=== PATIENT | female | born 1955 | race Caucasian/White ===

== ENCOUNTER 2020-02-25 10:23 | Emergency (ER) | payer MEDICARE, BC ==
[2020-02-25] MEDS ORDERED: Aspirin 81 MG Tab.Chew PO ONE (10:36)
--- NOTE | 2020-02-25 10:41 | EDM.PDOC ---
ED HPI GENERAL MEDICAL PROBLEM - General Chief Complaint: Cardiovascular Problem Stated Complaint: CHEST PAINS Time Seen by Provider: 02/25/20 10:25 Source of Information: Reports: Patient History Limitations: Reports: No Limitations - History of Present Illness INITIAL COMMENTS - FREE TEXT/NARRATIVE: Patient presents the ER this morning with chest pain that started Sunday evening midsternal with no radiation describes as a discomfort across the mid chest but a 7 out of 10 it lasted for about 20 minutes or so and went away after she vomited. States she felt little weak all day the next day. This morning approximate about 4:30 in the morning she has had the same discomfort in the middle of her chest like a band/pressure going all the way around her she denies any radiation but states she felt very nauseated. She went on into work and work made her come here. She denies any chest pain just discomfort states she still has some nausea but denies any shortness of breath or vomiting lightheadedness or dizziness or any other complaints at this time. She states she is had a cardiac stress test 2 years ago was normal but she does have a strong family history with father brothers having MIs and coronary artery disease Duration: Day(s): Location: Reports: Chest Quality: Reports: Pressure Severity: Moderate Improves with: Reports: None Worsens with: Reports: None Associated Symptoms: Reports: Nausea/Vomiting - Related Data Allergies Allergy/AdvReac Type Severity Reaction Status Date / Time paroxetine [From Paxil] Allergy Drowsiness Verified 02/25/20 11:44 Sulfa (Sulfonamide Allergy Swollen Verified 02/25/20 11:44 Antibiotics) Tongue ED ROS GENERAL - Review of Systems Review Of Systems: See Below Constitutional: Reports: No Symptoms HEENT: Reports: No Symptoms Respiratory: Reports: No Symptoms Cardiovascular: Reports: Chest Pain. Denies: Blood Pressure Problem, Claudication, Dyspnea on Exertion, Edema, Lightheadedness, Orthopnea, Palpitations, PND, Syncope GI/Abdominal: Reports: Nausea : Reports: No Symptoms Musculoskeletal: Reports: No Symptoms Skin: Reports: No Symptoms Neurological: Reports: No Symptoms Psychiatric: Reports: No Symptoms Hematologic/Lymphatic: Reports: No Symptoms Immunologic: Reports: No Symptoms ED EXAM, GENERAL - Physical Exam Exam: See Below Exam Limited By: No Limitations General Appearance: Alert, WD/WN, No Apparent Distress Throat/Mouth: Normal Inspection, Normal Lips, Normal Teeth, Normal Gums, Normal Oropharynx, Normal Voice, No Airway Compromise Head: Atraumatic, Normocephalic Neck: Normal Inspection, Supple, Non-Tender, Full Range of Motion Respiratory/Chest: No Respiratory Distress, Lungs Clear, Normal Breath Sounds, No Accessory Muscle Use, Chest Non-Tender Cardiovascular: Normal Peripheral Pulses, Regular Rate, Rhythm, No Edema, No Gallop, No JVD, No Murmur, No Rub, Other (Normal equal dorsalis pedis posterior tibialis bilateral) GI/Abdominal: Normal Bowel Sounds, Soft, Non-Tender, No Organomegaly, No Distention Extremities: Normal Inspection, Normal Range of Motion, Non-Tender, No Pedal Edema Neurological: Alert, Oriented, CN II-XII Intact, Normal Cognition, Normal Gait, No Motor/Sensory Deficits Psychiatric: Normal Affect, Normal Mood Skin Exam: Warm, Dry, Intact, Normal Color, No Rash Lymphatic: No Adenopathy Course - Vital Signs Text/Narrative:: CBC BMP INR coags troponin EKG and chest x-ray EKG reveals normal sinus rhythm no acute findings all labs within normal limit troponin negative chest x-ray no acute findings Patient was given aspirin nitro patient had complete relief after [address] [facility] will accept transfer pt [id number] Last Recorded V/S: Last Vital Signs Temp Pulse Resp BP 143/93 H 02/25/20 10:57 Pulse Ox - Orders/Labs/Meds Orders: Active Orders 24 hr Category Date Time Status Nitroglycerin [Nitrostat] Med 02/25/20 10:36 Active 0.4 mg SL Q5M PRN Medication Orders Nitroglycerin (Nitrostat) 0.4 mg SL Q5M PRN PRN Reason: Chest Pain Last Admin: 02/25/20 10:57 Dose: 0.4 mg Documented by: Admin: 02/25/20 10:52 Dose: 0.4 mg Documented by: TAMMY Labs: Laboratory Tests 02/25/20 02/25/20 02/25/20 Range/Units 10:45 10:45 10:45 WBC 5.6 (4.0-10.0) x10^3/uL RBC 4.21 (4.00-5.50) x10^6/uL Hgb 13.4 (12.0-16.0) g/dL Hct 39.2 (33.0-47.0) % MCV 93.1 H (78.0-93.0) fL MCH 31.8 (26.0-32.0) pg MCHC 34.2 (32.0-36.0) g/dL RDW Coeff of Zohra 12.3 (10.0-15.0) % Plt Count 285 (130-400) x10^3/uL Neut % (Auto) 50.5 (50.0-80.0) % Lymph % (Auto) 29.0 (25.0-50.0) % Swain % (Auto) 13.1 H (2.0-11.0) % Eos % (Auto) 6.5 H (0.0-4.0) % Baso % (Auto) 0.9 (0.2-1.2) % PT 10.3 (9.5-12.3) SEC INR 0.9 L (2.0-3.5) Sodium 141 (136-145) mmol/L Potassium 4.1 (3.5-5.1) mmol/L Chloride 104 (98-107) mmol/L Carbon Dioxide 29 (21-32) mmol/L Anion Gap 12.1 (10-20) mmol/L BUN 26 H (7-18) mg/dL Creatinine 1.0 (0.55-1.02) mg/dL Est Cr Clr Drug Dosing TNP Estimated GFR (MDRD) 55 Glucose 102 (74-106) mg/dL Calcium 8.7 (8.5-10.1) mg/dL Troponin I < 0.017 (<=0.056) ng/mL Meds: Medications Generic Name Dose Route Start Last Admin Trade Name Freq PRN Reason Stop Dose Admin Nitroglycerin 0.4 mg 02/25/20 10:36 02/25/20 10:57 Nitrostat SL 0.4 mg Q5M PRN Administration Chest Pain Discontinued Medications Generic Name Dose Route Start Last Admin Trade Name Freq PRN Reason Stop Dose Admin Aspirin 324 mg 02/25/20 10:36 02/25/20 10:38 Aspirin PO 02/25/20 10:37 324 mg ONETIME ONE Administration Lorazepam 0.5 mg 02/25/20 11:10 02/25/20 11:20 Ativan PO 02/25/20 11:11 0.5 mg ONETIME ONE Administration Ondansetron HCl 4 mg 02/25/20 11:00 02/25/20 11:05 Zofran IVPUSH 02/25/20 11:01 4 mg ONETIME ONE Administration Departure - Departure Time of Disposition: 11:35 Disposition: DC/Tfer to [facility] Reason for Transfer *Q: Other (Cardiology evaluation) Condition: Good Clinical Impression: Chest pain Referrals: Mari Pelayo EGG SEPARATOR [Primary Care Provider] - Forms: ED Department Discharge, Interfacility Transfer [facility] Sepsis Event Note (ED) - Focused Exam Vital Signs: Vital Signs BP 02/25/20 10:57 143/93 H 02/25/20 10:52 167/96 H - Problem List & Annotations (1) Chest pain SNOMED Code(s): 10608201 Code(s): R07.9 - CHEST PAIN, UNSPECIFIED Status: Acute Current Visit: Yes - My Orders Last 24 Hours: My Active Orders 02/25/20 10:36 Nitroglycerin [Nitrostat] 0.4 mg SL Q5M PRN - Assessment/Plan Last 24 Hours: My Active Orders 02/25/20 10:36 Nitroglycerin [Nitrostat] 0.4 mg SL Q5M PRN
[2020-02-25] MEDS: Nitroglycerin 0.4 MG Tab.SL SL PRN ×2 (10:52→10:57)
[2020-02-25] MEDS ORDERED: Ondansetron 4 MG/2 ML SDV IVPUSH ONE (11:00)
[2020-02-25] MEDS ORDERED: LORazepam 0.5 MG Tab PO ONE (11:10)
--- NOTE | 2020-02-25 11:14 | CR ---
[id number] RAD/RAD Chest PA or AP 1V EXAM: RAD Chest PA or AP 1V INDICATION: CHEST PAIN. COMPARISON: None. DISCUSSION: Cardiomediastinal silhouette is normal in size and contour. No infiltrate, effusion, pneumothorax, or edema. IMPRESSION: Negative examination of the chest. Devin Rome MD 02/25/20 1113 Thank you for allowing us to participate in the care of your patient.
[2020-02-25 11:17] LABS: ANION GAP 12.1 mmol/L (10-20); CHLORIDE,CL 104 mmol/L (98-107); SODIUM,NA 141 mmol/L (136-145)
[2020-02-25] MEDS ORDERED: Acetaminophen 500 MG Tab PO ONE (12:19)
[2020-02-25] MEDS ORDERED: Sodium Chloride 0.9% 1,000 ML IV SCH (12:30)
== END 2020-02-25 12:54 | disposition short-term general hospital (02) ==
LOC: VM.ED 10:23
DX: R07.89 Other chest pain (principal); Z88.8 Allergy status to other drugs, medicaments and biological substances; Z88.2 Allergy status to sulfonamides
CPT/HCPCS: 71045; 80048; 84484; 85025; 85610; 96374; 99284-GF; 99285-25; A9270-GY; J2405; J7030